=== PATIENT | male | born 1950 ===

== ENCOUNTER 2019-12-24 08:21 | Outpatient (CLI) | payer OTHER ==
[~2019-12-24 08:21] MED LIST: SEPTRA DS TABLE1 TAB PO; TAMS0.4C PO
== END 2019-12-24 08:32 | disposition home or self-care (01) ==
LOC: TOM 08:21
DX: K56.50 Intestinal adhesions [bands], unspecified as to partial versus complete obstruction (principal); K56.609 Unspecified intestinal obstruction, unspecified as to partial versus complete obstruction; K56.690 Other partial intestinal obstruction